=== PATIENT | female | born 1970 | race Caucasian/White ===

== ENCOUNTER → 2016-12-26 | Day surgery (SDC) | payer BC ==
[~2016-12-26] VITALS: Ht 162.6 cm; Wt 78.3 kg
[~2016-12-26] MED LIST: ADVIL200 MG PO; TYLENOL WITH C1 EACH PO
--- NOTE | ~2016-12-26 | OR ---
PATIENT'S NAME: SHELL MADRID [facility] AGE: 46 Y [address] ROOM: [place] [id number] [place] [facility] [place]: 12/26/2016 OR/Procedure Report DISCHARGE DATE: FAMILY PHYSICIAN: Chay Mcdaniel MD ATTENDING PHYSICIAN: Shruthi Nguyen SURGEON: Shruthi Nguyen MD [employer]ING [employer]: DATE OF PROCEDURE: 12/26/2016 PREOPERATIVE DIAGNOSIS: Obstructing proximal 8-mm right ureter stone. SECONDARY DIAGNOSIS: Left nephrolithiasis. PROCEDURE PERFORMED: Cystoscopy, stone manipulation, right stent placement, and right extracorporeal shock wave lithotripsy. ANESTHESIA: MAC. COMPLICATIONS: None. INDICATION FOR PROCEDURE: The patient is a 46-year-old female who had the acute onset of right flank pain earlier today. Abdominopelvic CT scan revealed an obstructing 8-mm proximal right ureter stone. She was also noted to have a nonobstructing 4-mm left renal pelvic stone. DETAILS OF PROCEDURE: After informed consent was obtained, the patient was taken to the operating room. A MAC anesthetic was applied. She was placed in dorsal lithotomy position. The groin area was prepped and draped in normal sterile fashion. Cystoscope was introduced into the urethra and bladder without difficulty. The right ureteral orifice was identified and cannulated with a guidewire up into the renal pelvis. Next, the yellow Flexi-Tip catheter was used to manipulate the stone up into the renal pelvis. Next, a 6- [place] Multi-Length ureteral stent was passed over the guidewire up into the renal pelvis. It appeared the stent was in the upper ureter and migrated down the ureter. Because of this, it was decided to remove the stent, and guidewire was replaced and then I passed a 6-Malawian x 30 cm stent up into the renal pelvis. This had adequate length to remain in the renal pelvis with curl present on radiographic imaging. The bladder was empty and the patient was transferred to the lithotripsy table and placed in a supine position. Fluoroscopy was then used to target her right renal pelvic stone. She received shocks starting at 16 kilovolts which was gradually increased to 24 kilovolts. The patient received a total of 3000 shocks with good fragmentation of the stone. The patient tolerated her procedure well and transferred to recovery room in good condition. PATIENT'S NAME: SHELL MADRID [facility] AGE: 46 Y [address] ROOM: [place] [address] [place] [facility] [place]: 12/26/2016 OR/Procedure Report DISCHARGE DATE: FAMILY PHYSICIAN: Chay Mcdaniel MD ATTENDING PHYSICIAN: Shruthi Nguyen MD AYE GALVEZ/taylor /[id number] d: 12/26/16 2346 t: 01/13/17 1227, OPERATIVE SUMMARY
[2016-12-26 14:29] LABS: BASOPHIL % 0.2 %; EOSINOPHIL % 0.1 %; HEMATOCRIT 40.4 % (33.0-46.0); HEMOGLOBIN 13.7 g/dL (10.0-15.0); IMMATURE GRANULOCYTE # 0.1 K/uL (0.0-0.3); IMMATURE GRANULOCYTE % 0.4 %; LYMPHOCYTE % 7.1 %; MCH 30.6 pg (27.0-34.0); MCHC 33.9 gm/dL (32.0-36.5); MCV 90.2 fl (83.0-98.0); MONOCYTE # 0.4 K/uL (0.0-1.0); MONOCYTE % 3.1 %; MPV 10.8 fl (9.4-12.4); NEUTROPHIL # (ANC) 12.6 K/uL (1.8-7.8); NEUTROPHIL % 89.1 %; NRBC % 0 /100WBC (0-0.00); PLATELET COUNT 211 K/uL (150-450); RBC 4.48 M/uL (3.50-5.50); RDW-CV 12.4 % (11.9-14.6); WBC 14.1 K/uL (4.0-11.0)
[2016-12-26 14:48] LABS: ALBUMIN 4.2 gm/dL (3.5-5.0); CALCIUM 8.3 mg/dL (8.5-10.5); TOTAL BILIRUBIN 0.8 mg/dL (0.0-1.5); TOTAL PROTEIN 7.6 g/dL (6.0-8.4)
== END | disposition disaster alternative care site (69) ==
LOC: GRAD 12:34 → GSDC 12:35 → GRAD 13:00
PROVIDERS: Urology
PROC: 0TN68ZZ Release Right Ureter, Via Natural or Artificial Opening Endoscopic (ICD-10-PCS; principal; 2016-12-26)
PROC: 0T768DZ Dilation of Right Ureter with Intraluminal Device, Via Natural or Artificial Opening Endoscopic (ICD-10-PCS; 2016-12-26)
PROC: 0TF3XZZ Fragmentation in Right Kidney Pelvis, External Approach (ICD-10-PCS; 2016-12-26)
DX: N20.2 Calculus of kidney with calculus of ureter (principal); Z87.891 Personal history of nicotine dependence; Z98.890 Other specified postprocedural states
CPT/HCPCS: C1769; C2617; J1100; J1956; J2405; J7120

== ENCOUNTER → 2017-01-09 | Day surgery (SDC) | payer BC ==
[~2017-01-09] VITALS: Ht 162.6 cm; Wt 76.4 kg
--- NOTE | ~2017-01-09 | OR ---
PATIENT'S NAME: SHELL MADRID [facility] AGE: 46 Y [address] ROOM: [place] [address] LOCATION: [facility] [place] ADMIT DATE: 01/09/2017 OR/Procedure Report DISCHARGE DATE: FAMILY PHYSICIAN: Chay Mcdaniel MD ATTENDING PHYSICIAN: John Kang SURGEON: John Kang MD [employer] ATTENDANT: DATE OF PROCEDURE: 01/09/2017 PREOPERATIVE DIAGNOSES: 1. Left nephrolithiasis. 2. Right ureteral stent. POSTOPERATIVE DIAGNOSES: 1. Left nephrolithiasis. 2. Right ureteral stent. PROCEDURE PERFORMED: 1. Cystoscopy and stent removal. 2. Left extracorporeal shock wave lithotripsy. ANESTHESIA: MAC. COMPLICATIONS: None. INDICATION FOR PROCEDURE: The patient is a 46-year-old female who is status post cystoscopy with right stent placement and stone manipulation, right ESWL. The patient now presents for treatment of her left-sided stone and stent removal. DETAILS OF PROCEDURE: After informed consent was obtained, the patient was taken to the operating room. A MAC anesthetic was applied. She was placed in a frog-leg position on the lithotripsy table. The groin area was prepped and draped in normal sterile fashion. Cystoscope was introduced into the urethra and bladder without difficulty. The stent was identified in the right ureteral orifice, engaged with grasping forceps and removed. The patient was then placed in the supine position. Her left-sided 6 x 6 mm stone was then targeted with fluoroscopy. She received shocks starting at 16 kilovolts and gradually increased to 24 kilovolts. The patient received a total of 3000 shocks with good fragmentation of the stone. The patient tolerated her procedure well and was transferred to recovery room in good condition. PATIENT'S NAME: SHELL MADRID [facility] AGE: 46 Y [address] ROOM: [place] [address] LOCATION: [facility] [place] ADMIT DATE: 01/09/2017 OR/Procedure Report DISCHARGE DATE: FAMILY PHYSICIAN: Chay Mcdaniel MD ATTENDING PHYSICIAN: John Kang JOHN KANG MD AYE/modl /[id number] CC: Chay Mcdaniel MD d: 01/11/17 0133 t: 01/13/17 1227, OPERATIVE SUMMARY
== END | disposition disaster alternative care site (69) ==
LOC: GSDC 07:00
PROC: 0TF4XZZ Fragmentation in Left Kidney Pelvis, External Approach (ICD-10-PCS; principal; 2017-01-09)
PROC: 0TP98DZ Removal of Intraluminal Device from Ureter, Via Natural or Artificial Opening Endoscopic (ICD-10-PCS; 2017-01-09)
DX: N20.0 Calculus of kidney (principal); Z46.6 Encounter for fitting and adjustment of urinary device; Z90.721 Acquired absence of ovaries, unilateral; Z87.891 Personal history of nicotine dependence
CPT/HCPCS: J1100; J1956; J2405; J7120